=== PATIENT | female | born 1970 | race Caucasian/White ===

== ENCOUNTER 2017-12-23 02:00 | Emergency (ER) | payer BC, OTHER ==
[2017-12-23] MEDS ORDERED: IPRATROPIUM/ALBUTEROL (0.5MG/3MG) NEB INH ONE (02:45)
[2017-12-23] MEDS ORDERED: AZITHROMYCIN 500 MG TABLET PO ONE (03:12)
--- NOTE | 2017-12-23 03:19 | Emergency Department Record ---
History of Present Illness - General Chief Complaint: Shortness of breath Stated Complaint: THINK HAVE BRONCHITIS Time Seen by Provider: 12/23/17 03:03 Source: Patient Mode of Arrival: Ambulatory Limitations: No limitations - History of Present Illness Initial Comments: pt works outside. she has a sore throat, l earache and productive brown cough. Complaint: Cough Onset/Timin -: Days(s) Severity scale (1-10): 7 Consistency: Constant Associated Symptoms: Cough Treatments Prior to Arrival: None - Related Data Home Oxygen Therapy: No Previous Rx's Medication Instructions Recorded Azithromycin [Zithromax] 250 mg PO DAILY #4 tab 12/23/17 Benzonatate [Tessalon] 1 cap PO Q8H PRN #10 cap 12/23/17 Allergies Allergy/AdvReac Type Severity Reaction Status Date / Time latex AdvReac RASH Verified 06/13/14 15:29 Sulfa (Sulfonamide AdvReac RASH Verified 06/13/14 15:29 Antibiotics) Travel Screening - Travel/Exposure Within Last 30 Days Have you traveled within the last 30 days?: No - Travel Symptoms Symptom Screening: None Review of Systems Reviewed: No additional complaints except as noted below Constitutional: Reports: As per HPI. Denies: Chills, Fever, Malaise, Night sweats, Weakness, Weight change Eyes: Reports: As per HPI. Denies: Eye discharge, Eye pain, Photophobia, Vision change ENT: Reports: As per HPI. Denies: Congestion, Dental pain, Ear pain, Epistaxis , Hearing loss, Throat pain Respiratory: Reports: As per HPI, Cough. Denies: Dyspnea, Hemoptysis, Stridor, Wheezes Cardiovascular: Reports: As per HPI. Denies: Arrhythmia, Chest pain, Dyspnea on exertion, Edema, Murmurs, Orthopnea, Palpitations, Paroxysmal nocturnal dyspnea, Rheumatic Fever, Syncope Endocrine: Reports: As per HPI. Denies: Fatigue, Heat or cold intolerance, Polydipsia, Polyuria Gastrointestinal: Reports: As per HPI. Denies: Abdominal pain, Constipation, Diarrhea, Hematemesis, Hematochezia, Melena, Nausea, Vomiting Genitourinary: Reports: As per HPI. Denies: Abnormal menses, Discharge, Dyspareunia, Dysuria, Frequency, Hematuria, Incontinence, Retention, Urgency Musculoskeletal: Reports: As per HPI. Denies: Arthralgia, Back pain, Gout, Joint swelling, Myalgia, Neck pain Skin: Reports: As per HPI. Denies: Bruising, Change in color, Change in hair/ nails, Lesions, Pruritus, Rash Neurological: Reports: As per HPI. Denies: Abnormal gait, Confusion, Headache, Numbness, Paresthesias, Seizure, Tingling, Tremors, Vertigo, Weakness Psychiatric: Reports: As per HPI. Denies: Anxiety, Auditory hallucinations, Depression, Homicidal thoughts, Suicidal thoughts, Visual hallucinations Hematological/Lymphatic: Reports: As per HPI. Denies: Anemia, Blood Clots, Easy bleeding, Easy bruising, Swollen glands Past Medical History - SOCIAL HISTORY Smoking Status: Current every day smoker - RESPIRATORY Hx Respiratory Disorders: No - CARDIOVASCULAR Hx Cardio Disorders: No - NEURO Hx Neuro Disorders: No - GI Hx GI Disorders: No - Hx Genitourinary Disorders: Yes Hx Kidney Stones: Yes - ENDOCRINE Hx Endocrine Disorders: No Hx Diabetes: No Hx Thyroid Disease: No - MUSCULOSKELETAL Hx Musculoskeletal Disorders: No - PSYCH Hx Psych Problems: No - HEMATOLOGY/ONCOLOGY Hx Hematology/Oncology Disorders: Yes Hx Cancer: Yes Hx Chemotherapy: Yes Hx Radiation Therapy: Yes Comment:: non hodgkins lymphoma Family Medical History Any Significant Family History?: Yes Hx Cancer: Father, Mother, Brother/Sister Hx Heart Disease: Father Physical Exam - General General Appearance: Alert, Oriented x3, Cooperative, Mild distress - Head Head exam: Normal inspection - Eye Eye exam: Normal appearance, PERRL, EOMI Pupils: Normal accommodation - ENT ENT exam: Normal exam, Mucous membranes moist, Normal external ear exam, Normal orophraynx, Other (l tm erythematous) Ear exam: Normal external inspection. negative: External canal tenderness Nasal Exam: Normal inspection. negative: Discharge, Sinus tenderness Mouth exam: Normal external inspection, Tongue normal Teeth exam: Normal inspection. negative: Dental caries Throat exam: Tonsillar erythema. negative: Tonsillar exudate - Neck Neck exam: Normal inspection, Full ROM. negative: Tenderness - Respiratory Respiratory exam: Normal lung sounds bilaterally. negative: Respiratory distress - Cardiovascular Cardiovascular Exam: Regular rate, Normal rhythm, Normal heart sounds - GI/Abdominal GI/Abdominal exam: Soft, Normal bowel sounds. negative: Tenderness - Rectal Rectal exam: Deferred - exam: Deferred - Extremities Extremities exam: Normal inspection, Full ROM, Normal capillary refill. negative: Tenderness - Back Back exam: Reports: Normal inspection, Full ROM. Denies: Muscle spasm, Rash noted, Tenderness - Neurological Neurological exam: Alert, CN II-XII intact, Normal gait, Oriented X3 - Psychiatric Psychiatric exam: Normal affect, Normal mood - Skin Skin exam: Dry, Intact, Normal color, Warm Course Vital Signs 12/23/17 12/23/17 02:36 02:49 Temperature 97.8 F Pulse Rate 69 Pulse Rate [ 73 Pulse Ox Probe] Respiratory 18 16 Rate Blood Pressure 144/84 [Left Arm] Pulse Ox 98 100 Disposition Disposition: Discharge Clinical Impression: Bronchitis Otitis media Qualifiers: Otitis media type: unspecified Laterality: left Qualified Code(s): H66.92 - Otitis media, unspecified, left ear Disposition: Home, Self-Care Condition: (1) Good Additional Instructions: follow up with family doctor. return sooner if worse. rest Prescriptions: Azithromycin [Zithromax] 250 mg PO DAILY #4 tab Benzonatate [Tessalon] 1 cap PO Q8H PRN #10 cap PRN Reason: Cough Quality - Quality Measures Quality Measures: N/A - Blood Pressure Screening Does Patient Have Any of the Following: No Blood Pressure Classification: Pre-Hypertensive BP Reading Systolic Measurement: 144 Diastolic Measurement: 84 Screening for High Blood Pressure: < Pre-Hypertensive BP, F/U Documented > [ G8950] Pre-Hypertensive Follow-up Interventions: Follow-up with rescreen every year.
[2017-12-23] MEDS ORDERED: BENZONATATE 100 MG CAPSULE PO ONE (03:27)
== END 2017-12-23 03:35 | disposition home or self-care (01) ==
LOC: ER 02:00
DX: J20.9 Acute bronchitis, unspecified (principal); H66.92 Otitis media, unspecified, left ear; F17.210 Nicotine dependence, cigarettes, uncomplicated
CPT/HCPCS: 94640; 99283

== ENCOUNTER 2018-08-21 21:36 | Emergency (ER) | payer BC ==
[2018-08-21] MEDS ORDERED: HYDROCODONE/APAP 5/325MG TABLET PO ONE ×2 (22:17→22:48)
--- NOTE | 2018-08-21 22:21 | Emergency Department Record ---
History of Present Illness - General Chief complaint: Pain Stated complaint: R ELBOW PAIN Time Seen by Provider: 08/21/18 21:50 Source: Patient Mode of Arrival: Ambulatory Limitations: No limitations - History of Present Illness Initial comments: The patient is here due to R elbow pain. She denies any trauma or injury but states the elbow has become progressively more painful over the last week. She has been using Ibuprofen for pain but today it is not helping. 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 There is no neck pain, paresthesias , visual changes, or balance issues. 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 MD Complaint: Extremity pain, Joint pain Onset/Timin -: Week(s) Location: Right, Elbow History of Same: No Radiation: Distal Quality: Aching Consistency: Constant Improves with: Nothing Worsens with: Exertion Associated Symptoms: Denies other symptoms - Related Data Previous Rx's Medication Instructions Recorded Methylprednisolone [Medrol Dose 4 mg PO DAILY #1 tab.ds.pk 08/21/18 Pack] Allergies Allergy/AdvReac Type Severity Reaction Status Date / Time latex AdvReac RASH Verified 06/13/14 15:29 Sulfa (Sulfonamide AdvReac RASH Verified 06/13/14 15:29 Antibiotics) Travel Screening - Travel/Exposure Within Last 30 Days Have you traveled within the last 30 days?: No - Travel Symptoms Symptom Screening: None Review of Systems Constitutional: Denies: Chills, Fever Eyes: Denies: Eye discharge ENT: Denies: Congestion Respiratory: Denies: Cough, Dyspnea Past Medical History - SOCIAL HISTORY Smoking Status: Current every day smoker Alcohol Use: None Drug Use: Occasional Drug Use Detail:: Marijuana - RESPIRATORY Hx Respiratory Disorders: No - CARDIOVASCULAR Hx Cardio Disorders: No - NEURO Hx Neuro Disorders: No - GI Hx GI Disorders: No - Hx Genitourinary Disorders: Yes Hx Kidney Stones: Yes - ENDOCRINE Hx Endocrine Disorders: No Hx Diabetes: No Hx Thyroid Disease: No - MUSCULOSKELETAL Hx Musculoskeletal Disorders: No - PSYCH Hx Psych Problems: No - HEMATOLOGY/ONCOLOGY Hx Hematology/Oncology Disorders: Yes Hx Cancer: Yes Hx Chemotherapy: Yes Hx Radiation Therapy: Yes Comment:: non hodgkins lymphoma Family Medical History Any Significant Family History?: Yes Hx Cancer: Father, Mother, Brother/Sister Hx Heart Disease: Father Physical Exam - General General Appearance: Alert, Cooperative, No acute distress - Head Head exam: Atraumatic, Normocephalic, Normal inspection - Eye Eye exam: Normal appearance - Neck Neck exam: Normal inspection, Full ROM. negative: Lymphadenopathy, Meningismus , Tenderness - Respiratory Respiratory exam: Normal lung sounds bilaterally. negative: Respiratory distress - Cardiovascular Cardiovascular Exam: Regular rate, Normal rhythm, Normal heart sounds - Extremities Extremities exam: Normal inspection, Full ROM (The patient does have ful ROM of the R elbow with mild pain on full flexion and extension.), Normal capillary refill, Tenderness (There is lateral elbow tenderness to palpation. ), Other ( The R arm and hand are NVI with normal pulses and motor function. The patient's hand grasp is very slightly weak due to pain only. The R shoulder is nontender with normal ROM.). negative: Joint swelling Course Vital Signs 08/21/18 21:43 Temperature 97.8 F Pulse Rate 88 Respiratory 20 Rate Blood Pressure 143/90 Pulse Ox 97 - Reevaluation(s) Reevaluation #1: I did discuss the neg xray with the patient and the need for rest and pain medicines. She is to see her PCP next week if not better by Sunday. 08/21/18 22:46 Medical Decision Making - Data Complexity MDM Data: X-Ray Ordered and/or Reviewed - Radiology Data Radiology results: Report reviewed (R elbow: Neg per Rad.) Disposition Disposition: Discharge Clinical Impression: Elbow pain, right Disposition: Home, Self-Care Condition: (2) Stable Instructions: Arthralgia (ED) Additional Instructions: Please rest the R arm and use ice to the elbow when possible. Off work 3 days. Please take the Hannah tonight and then the Medrol dose pack tomorrow. Please see your family doctor next week for recheck and return to the ER for any worsening symptoms. Prescriptions: Methylprednisolone [Medrol Dose Pack] 4 mg PO DAILY #1 tab.ds.pk Forms: Patient Portal Access Time of Disposition: 22:48 Quality - Quality Measures Quality Measures: N/A - Blood Pressure Screening View Details: Yes Does Patient Have Any of the Following: No Blood Pressure Classification: Hypertensive Reading Systolic Measurement: 143 Diastolic Measurement: 90 Screening for High Blood Pressure: < First Hypertensive BP, F/U Documented > [ G8950] First Hypertensive Follow-up Interventions: Referral to alternative/primary care provider.
--- NOTE | 2018-08-21 23:53 | RADIOLOGY REPORT ---
EXAM: ELBOW, RIGHT 3 VIEWS HISTORY: RIGHT ELBOW PAIN. TECHNIQUE: Three views of the elbow were obtained. FINDINGS: No fracture or dislocation is seen. Bone density is normal. IMPRESSION: NEGATIVE. JOB NUMBER: [id number] MTDD
== END 2018-08-21 22:58 | disposition home or self-care (01) ==
LOC: ER 21:36
DX: M25.521 Pain in right elbow (principal); F17.210 Nicotine dependence, cigarettes, uncomplicated
CPT/HCPCS: 99283

== ENCOUNTER 2019-03-07 03:23 | Emergency (ER) | payer BC ==
[2019-03-07] MEDS ORDERED: DOXYCYCLINE HYCLATE 100 MG CAPSULE PO ONE (03:33)
[2019-03-07] MEDS ORDERED: PREDNISONE 20 MG TAB PO ONE (03:33)
[2019-03-07] MEDS ORDERED: BENZONATATE 100 MG CAPSULE PO ONE (03:33)
--- NOTE | 2019-03-07 03:36 | Emergency Department Record ---
History of Present Illness - General Chief Complaint: Cough Stated Complaint: COUGH Time Seen by Provider: 03/07/19 03:24 Source: Patient Mode of Arrival: Ambulatory Limitations: No limitations - History of Present Illness Initial Comments: 49 yo female presents to ED for evaluation of non-productive cough symptoms for the past 3 days. Patient denies fevers, chills, or productive cough symptoms. Patient denies history of COPD or asthma, is a current smoker. MD Complaint: Cough Onset/Timin -: Days(s) Consistency: Constant Improves With: Nothing Worsens With: Nothing Associated Symptoms: Denies other symptoms Treatments Prior to Arrival: None - Related Data Previous Rx's Medication Instructions Recorded Benzonatate [Tessalon] 2 cap PO Q8H PRN #30 cap 03/07/19 Doxycycline Hyclate 20 mg PO BID #10 tab 03/07/19 Doxycycline Hyclate 200 mg PO BID #18 cap 03/07/19 Allergies Allergy/AdvReac Type Severity Reaction Status Date / Time latex AdvReac RASH Verified 03/07/19 03:29 Sulfa (Sulfonamide AdvReac RASH Verified 03/07/19 03:29 Antibiotics) Travel Screening - Travel/Exposure Within Last 30 Days Have you traveled within the last 30 days?: No Review of Systems Constitutional: Denies: Chills, Fever, Malaise, Night sweats Eyes: Denies: Eye discharge, Eye pain ENT: Denies: Ear pain, Epistaxis Respiratory: Reports: Cough. Denies: Dyspnea Cardiovascular: Denies: Chest pain, Dyspnea on exertion Endocrine: Denies: Fatigue, Heat or cold intolerance Gastrointestinal: Denies: Abdominal pain, Nausea, Vomiting Genitourinary: Denies: Incontinence, Retention Musculoskeletal: Reports: Myalgia. Denies: Arthralgia, Back pain Skin: Denies: Bruising, Change in color Neurological: Denies: Abnormal gait, Confusion, Seizure Psychiatric: Denies: Anxiety Hematological/Lymphatic: Denies: Anemia, Blood Clots Past Medical History - SOCIAL HISTORY Smoking Status: Current every day smoker - RESPIRATORY Hx Respiratory Disorders: No - CARDIOVASCULAR Hx Cardio Disorders: No - NEURO Hx Neuro Disorders: No - GI Hx GI Disorders: No - Hx Genitourinary Disorders: Yes Hx Kidney Stones: Yes - ENDOCRINE Hx Endocrine Disorders: No Hx Diabetes: No Hx Thyroid Disease: No - MUSCULOSKELETAL Hx Musculoskeletal Disorders: No - PSYCH Hx Psych Problems: No - HEMATOLOGY/ONCOLOGY Hx Hematology/Oncology Disorders: Yes Hx Cancer: Yes Hx Chemotherapy: Yes Hx Radiation Therapy: Yes Comment:: non hodgkins lymphoma Family Medical History Any Significant Family History?: Yes Hx Cancer: Father, Mother, Brother/Sister Hx Heart Disease: Father Physical Exam - General General Appearance: Alert, Oriented x3, Cooperative, Mild distress Limitations: No limitations - Head Head exam: Atraumatic, Normocephalic, Normal inspection Head exam detail: negative: Abrasion, Contusion, Ferrera's sign, General tenderness, Hematoma, Laceration - Eye Eye exam: Normal appearance. negative: Conjunctival injection, Periorbital swelling, Periorbital tenderness, Scleral icterus - ENT Ear exam: negative: Auricular hematoma, Auricular trauma Nasal Exam: negative: Active bleeding, Discharge, Dried blood, Foreign body Mouth exam: negative: Drooling, Laceration, Muffled voice, Tongue elevation - Neck Neck exam: Normal inspection. negative: Meningismus, Tenderness - Respiratory Respiratory exam: Normal lung sounds bilaterally. negative: Rales, Respiratory distress, Rhonchi, Stridor - Cardiovascular Cardiovascular Exam: Regular rate, Normal rhythm, Normal heart sounds - GI/Abdominal GI/Abdominal exam: Soft. negative: Rebound, Rigid, Tenderness - Rectal Rectal exam: Deferred - exam: Deferred - Extremities Extremities exam: Normal inspection. negative: Pedal edema, Tenderness - Back Back exam: Denies: CVA tenderness (R), CVA tenderness (L) - Neurological Neurological exam: Alert, Normal gait, Oriented X3 - Psychiatric Psychiatric exam: Normal affect, Normal mood - Skin Skin exam: Normal color. negative: Abrasion Type of lesion: negative: abrasion Course Vital Signs 03/07/19 03:30 Temperature 97.5 F L Pulse Rate 81 Respiratory 18 Rate Blood Pressure 134/74 Pulse Ox 96 - Reevaluation(s) Reevaluation #1: 03/07/19 03:41 Patient was seen and examined, symptoms appear c/w acute bronchitis. Will treat with Doxycycline, Tessalon, and Prednisone as directed. Patient reports that she has Albuterol at home. Patient appears stable for discharge at this time. Disposition Disposition: Discharge Clinical Impression: Acute bronchitis Qualifiers: Bronchitis organism: unspecified organism Qualified Code(s): J20.9 - Acute bronchitis, unspecified Disposition: Home, Self-Care Condition: (2) Stable Instructions: Acute Bronchitis (ED) Additional Instructions: Return to ED if your symptoms worsen or if you have any concerns. Tessalon, Doxycycline, and Prednisone as directed. Follow-up with your family doctor in 3-5 days as directed. Prescriptions: Doxycycline Hyclate 200 mg PO BID #18 cap Doxycycline Hyclate 20 mg PO BID #10 tab Benzonatate [Tessalon] 2 cap PO Q8H PRN #30 cap PRN Reason: Cough Forms: Patient Portal Access Time of Disposition: 03:36 Quality - Quality Measures Quality Measures: N/A - Blood Pressure Screening Does Patient Have Any of the Following: No Blood Pressure Classification: Pre-Hypertensive BP Reading Systolic Measurement: 134 Diastolic Measurement: 74 Screening for High Blood Pressure: < Pre-Hypertensive BP, F/U Documented > [G8950] Pre-Hypertensive Follow-up Interventions: Referral to alternative/primary care provider.
== END 2019-03-07 03:42 | disposition home or self-care (01) ==
LOC: ER 03:23
DX: J20.9 Acute bronchitis, unspecified (principal)
CPT/HCPCS: 99282; J7512